=== PATIENT | male | born 1945 | race Caucasian/White ===

== ENCOUNTER → 2018-04-04 13:33 | Outpatient (CLI) | payer MEDICARE, OTHER, SELFPAY ==
[2018-04-04 15:20] LABS: PSA,Total- Diagnostic 4.46 ng/mL (0.0-4.0)
== END ==
PROVIDERS: Family Provider Internal Medicine; PCP Internal Medicine; Visit Provider Urology
DX: R97.20 Elevated prostate specific antigen [PSA] (principal)
CPT/HCPCS: 36415; 84153

== ENCOUNTER → 2019-04-19 10:24 | Outpatient (CLI) | payer MEDICARE, OTHER, SELFPAY ==
[2019-04-19 11:36] LABS: PSA,Total- Diagnostic 6.39 ng/mL (0.0-4.0)
== END ==
PROVIDERS: Family Provider Internal Medicine; PCP Internal Medicine; Referring Provider Urology; Visit Provider Urology
DX: R97.20 Elevated prostate specific antigen [PSA] (principal)
CPT/HCPCS: 36415; 84153

== ENCOUNTER → 2019-10-16 12:27 | Outpatient (CLI) | payer MEDICARE, OTHER, SELFPAY ==
[2019-10-16 14:10] LABS: PSA,Total- Diagnostic 7.83 ng/mL (0.0-4.0)
== END ==
PROVIDERS: PCP Internal Medicine; Referring Provider Urology; Visit Provider Urology
DX: R97.20 Elevated prostate specific antigen [PSA] (principal)
CPT/HCPCS: 36415; 84153

== ENCOUNTER → 2019-10-31 08:32 | Outpatient (CLI) | payer MEDICARE, OTHER, SELFPAY ==
--- NOTE | 2019-10-31 08:38 | NM_ITS ---
CLINICAL: 74-year-old male with reported history of carcinoma of the prostate with increasing serum PSA level and current complaint of low back discomfort. WHOLE BODY 99m Tc MDP RADIONUCLIDE BONE SCINTIGRAPHY COMPARISON: None available FINDINGS: Following the intravenous administration of 27.0 mCi of 99m Tc MDP, whole body bone images reveal: 1. Increased radiopharmaceutical concentration is identified in the acromioclavicular, glenohumeral and sternoclavicular compartments of both shoulders, lower cervical spine posteriorly on the left, several mid and lower thoracic vertebra, third-fifth lumbar vertebra, visualized right elbow, bilateral hands, the visualized portion of the left wrist. 2. The remaining skeletal structures are scintigraphically unremarkable with normal-appearing renal images and urinary bladder activity identified. Mild enhanced uptake is apparent in the femoral and tibial components of the bilateral knee, intertrochanteric components of the bilateral hip prostheses and distal femoral component of the right hip arthroplasty. NM/Bone Scan Whole Body IMPRESSION: 1. The increase in radiopharmaceutical concentration identified in the bilateral shoulders, cervical, thoracic and lumbar vertebra, bilateral hands, right elbow, the visualized left wrist is commensurate with degenerative arthritis. 2. There is no definitive typical scintigraphic evidence of diffuse axial skeletal metastatic disease on the current examination. Electronically Signed: Hill Youngblood DO at 23:20 EDT Tel , Service support ,
== END ==
PROVIDERS: PCP Internal Medicine; Referring Provider Urology; Visit Provider Urology
DX: C61 Malignant neoplasm of prostate (principal)
CPT/HCPCS: 78306

== ENCOUNTER → 2019-11-16 | Outpatient (CLI) | payer MEDICARE, OTHER, SELFPAY ==
--- NOTE | 2019-11-16 08:00 | PROSBIL_PTH ---
PATIENT: DEBI CASTELLANOS LOC: [facility] U#:[id number] AGE/SX: 74/M ROOM: RE11/16/[address]: Dr. Justo Travis MD : 1945 BED: DIS: 11/16/2019 SPEC #: [id number] RECD: 11/17/19 07:58 STATUS: DEMAR REQ #: [id number] SERGE: 11/16/19 08:[address]: Justo Travis DEPT: SURGICAL PATHOLOGY RECD BY: Viet Coppola ENTERED: 11/17/19 07:58 SP TYPE: PROST BX JOSESITO DR: Dr. Diamante Owens DO Tissues: A - PROSTATE RIGHT B - PROSTATE RIGHT C - PROSTATE RIGHT D - PROSTATE LEFT E - PROSTATE LEFT F - PROSTATE LEFT Procedures: PROSTATE BX HEADER OPERATION: Prostate biopsy PRE-OP DIAGNOSIS: Elevated PSA TISSUE SUBMITTED: A - Right apex, B - Right mid, C - Right base, D - Left apex, E - Left mid, F - Left base MICROSCOPIC DIAGNOSIS A. Right prostate, apex, core biopsy: Prostatic adenocarcinoma. Belle Rose grade: 3+4=7 Number of cores involved: 1/1 Proportion of tissue involved: 20% Perineural invasion: present, focal. Greatest tumor length: 0.4 cm Focal chronic inflammation. B. Right prostate, mid, core biopsy: Prostatic adenocarcinoma. Belle Rose grade: 3+4=7 Number of cores involved: 1/1 Proportion of tissue involved: 50% Perineural invasion: Not identified. Greatest tumor length: 0.5 cm Focal calcification. C. Right prostate, base, core biopsy: Prostatic adenocarcinoma. Belle Rose grade: 3+4=7 Number of cores involved: 1/1 Proportion of tissue involved: 60% Perineural invasion: Present, focal Greatest tumor length: 0.6 cm D. Left prostate, apex, core biopsy: Prostatic adenocarcinoma. Belle Rose grade: 3+4=7 Number of cores involved: 1/1 Proportion of tissue involved: 50% Perineural invasion: Not identified. Greatest tumor length: 1.2 cm, discontinuous E. Left prostate, mid, core biopsy: Prostatic adenocarcinoma. Belle Rose grade: 3+5=8 Number of cores involved: 1/1 Proportion of tissue involved: 80% Perineural invasion: Not identified. Greatest tumor length: 0.8 cm F. Left prostate, base, core biopsy: Prostatic adenocarcinoma. Belle Rose grade: 3+4=7 Number of cores involved: 1/1 Proportion of tissue involved: 50% Perineural invasion: Not identified. Greatest tumor length: 0.7 cm, discontinuous SJ:andriy 11/20/19 COMMENT Please make reference to previous specimen ([id number]) left prostate, core biopsy with diagnosis of prostatic adenocarcinoma, Belle Rose score 4+4-8 and the tumor involves 3 out of 6 cores and about 60% of the submitted specimen. Case has been reviewed in consultation with Dr. Levi who concurs with the above diagnosis. IDC:AM MICROSCOPIC DESCRIPTION Slides are reviewed. GROSS DESCRIPTION A - Received is one container designated prostate, right apex. The specimen consists of one elongated fragment of light duran-white soft tissue measuring 2 cm in length and 0.1 cm in diameter. The specimen is totally submitted in one cassette. B - Received is one container designated prostate, right mid. The specimen consists of one elongated fragment of light duran-white soft tissue measuring 1.5 cm in length and 0.1 cm in diameter. The specimen is totally submitted in one cassette. C - Received is one container designated prostate, right base. The specimen consists of one elongated fragment of light duran-white soft tissue measuring 1.5 cm in length and 0.1 cm in diameter. The specimen is totally submitted in one cassette. D - Received is one container designated prostate, left apex. The specimen consists of one elongated fragment of light duran-white soft tissue measuring 2 cm in length and 0.1 cm in diameter. The specimen is totally submitted in one cassette. E - Received is one container designated prostate, left mid. The specimen consists of one elongated fragment of light duran-white soft tissue measuring 1.5 cm in length and 0.1 cm in diameter. The specimen is totally submitted in one cassette. F - Received is one container designated prostate, left base. The specimen consists of one elongated fragment of light duran-white soft tissue measuring 1.2 cm in length and 0.1 cm in diameter. The specimen is totally submitted in one cassette. / AM:andriy 11/17/19 TC:0 CPT: G0146 ADDENDUM ADDENDUM ADDENDUM ADDENDUM ADDENDUM ADDENDUM ADDENDUM ADDENDUM ADDENDUM ADDENDUM ADDENDUM ADDENDUM ADDENDUM ADDENDUM ADDENDUM ADDENDUM ADDENDUM ADDENDUM ADDENDUM ADDENDUM ADDENDUM ADDENDUM ADDENDUM ADDENDUM ADDENDUM ADDENDUM ADDENDUM ADDENDUM ADDENDUM 06/07/2023 10:02 ADDENDUM 06/07/2023 10:02 ADDENDUM 06/07/2023 10:02 ADDENDUM 06/07/2023 10:02 ADDENDUM 06/07/2023 10:02 This addendum is added to incorporate an outside pathology consultation report. The case was examined at [facility] (#[id number]) and the following diagnosis was rendered. A. Right prostate, apex, core biopsy: Prostatic adenocarcinoma, Kassy score 4+3=7, involving 1 of fragmented 1 core and 25% of the tissue. Perineural invasion. B. Right prostate, mid, core biopsy: Prostatic adenocarcinoma, Kassy score 4+3=7, involving 1 of 1 core and 50% of the tissue. Perineural invasion. C. Right prostate, base, core biopsy: Prostatic adenocarcinoma, Belle Rose score 4+3=7, involving 1 of fragmented 1 core and 50% of the tissue. Perineural invasion. D. Left prostate, apex, core biopsy: Prostatic adenocarcinoma, Kasys score 4+3=7, involving 1 of fragmented 1 core and 90% of the tissue. Perineural invasion. E. Left prostate, mid, core biopsy: Prostatic adenocarcinoma, Belle Rose score 4+4=8, involving 1 of 1 core and 70% of the tissue. Perineural invasion. F. Left prostate, base, core biopsy: Prostatic adenocarcinoma, Belle Rose score 4+5=9, involving 1 of 1 core and 100% of the tissue. Perineural invasion. Please see complete above mentioned consultation report in EMR
== END | disposition home or self-care (01) ==
LOC: LABSPEC 16:22
PROVIDERS: PCP Internal Medicine; Referring Provider Urology; Visit Provider Urology
DX: R97.20 Elevated prostate specific antigen [PSA] (principal)
CPT/HCPCS: 88305; G0416

== ENCOUNTER → 2020-02-22 10:04 | Outpatient (CLI) | payer MEDICARE, OTHER, SELFPAY ==
[2020-02-22 12:07] LABS: PSA,Total- Diagnostic 1.27 ng/mL (0.0-4.0)
== END ==
PROVIDERS: PCP Internal Medicine; Referring Provider Urology; Visit Provider Urology
DX: C61 Malignant neoplasm of prostate (principal)
CPT/HCPCS: 36415; 84153

== ENCOUNTER → 2020-08-27 09:10 | Outpatient (CLI) | payer MEDICARE, OTHER, SELFPAY ==
[2020-08-27 10:46] LABS: PSA,Total- Diagnostic 7.75 ng/mL (0.0-4.0)
== END ==
PROVIDERS: PCP Internal Medicine; Referring Provider Urology; Visit Provider Urology
DX: C61 Malignant neoplasm of prostate (principal)
CPT/HCPCS: 36415; 84153

== ENCOUNTER → 2020-12-23 08:35 | Outpatient (CLI) | payer MEDICARE, OTHER, SELFPAY ==
[2020-12-23 11:25] LABS: PSA,Total- Diagnostic 8.16 ng/mL (0.0-4.0)
== END ==
PROVIDERS: PCP Internal Medicine; Referring Provider Urology; Visit Provider Urology
DX: C61 Malignant neoplasm of prostate (principal)
CPT/HCPCS: 36415; 84153

== ENCOUNTER 2021-03-21 06:05 | Day surgery (SDC) | payer MEDICARE, OTHER, SELFPAY ==
[2021-03-21] VITALS (7 sets, daily range): BP systolic 101–142; BP diastolic 55–73; PULSE 55–82; RESP 16; TEMP 36.1–36.6; O2SAT 92–95; BMI 46.5
[2021-03-21] MEDS: Lactated Ringers 1,000 ML 100 ML IV (06:25)
--- NOTE | 2021-03-21 06:58 | PCM.HP.STD ---
HPI - General HPI Narrative DEBI CASTELLANOS, is a 76 M who presents who presents for a screening colonoscopy.. He has no complaints. Occasional rectal bleeding. No abdominal pain no weight loss. Does not recall exact date of previous colonoscopy [facility] Medical History (Updated 03/21/21 @ 07:[address] Lit Liang MD) Alcohol use Arthritis Back pain Cancer CPAP (continuous positive airway pressure) dependence Easy bruising Gastric reflux High cholesterol History of stress test Hypertension Leg cramps Low iron Non-smoker Prostate disease Wears glasses Wears hearing aid Home Medications amlodipine [Norvasc] 10 mg PO DAILY 03/19/21 [History Last Taken 03/21/21] ascorbic acid (vitamin C) [Vitamin C] 500 mg PO DAILY 03/19/21 [History Last Taken Unknown] aspirin 325 mg PO DAILY 03/19/21 [History Last Taken 03/13/21] ciprofloxacin HCl [Cipro] 500 mg PO BID 03/19/21 [History Last Taken Unknown] ergocalciferol (vitamin D2) [Vitamin D2] 50,000 unit PO SYKES 03/19/21 [History Last Taken Unknown] losartan 50 mg PO DAILY 03/19/21 [History Last Taken 03/21/21] multivitamin 1 cap PO DAILY 03/19/21 [History Last Taken Unknown] pantoprazole 40 mg PO DAILY 03/19/21 [History Last Taken 03/21/21] prazosin 15 mg PO BID 03/19/21 [History Last Taken 03/21/21] vitamin E 400 unit PO DAILY 03/19/21 [History Last Taken Unknown] Allergy/AdvReac Type Severity Reaction Status Date / Time latex Allergy Rash Verified 03/21/21 06:27 Penicillins Allergy Itching Verified 03/21/21 06:27 Surgical History (Updated 03/19/21 @ 11:26 by Sahara Ruiz) History of colectomy Hx of cholecystectomy Hx of colonoscopy Hx of hammer toe correction Hx of total hip arthroplasty Hx of total knee arthroplasty Social History Smoking Status: Never smoker ROS Constitutional Constitutional: Reports systems reviewed and no addt'l complaints, except as documented Cardiovascular Cardiovascular: Denies chest pain Respiratory/Chest Respiratory/Chest: Denies shortness of breath at rest Gastrointestinal Gastrointestinal: Denies abdominal pain, change in bowel habits, hematochezia or melena Vital Signs Vital Signs Vital Signs: 03/21/21 06:47 Temperature 97.9 F Temperature Source Temporal Pulse Rate 82 Respiratory Rate 16 Respiratory Pattern Normal Blood Pressure 142/71 H Blood Pressure Mean 94 Blood Pressure Source Monitor Blood Pressure Position Semi-Fowlers Blood Pressure Location Right Arm Pulse Ox 95 Oxygen Delivery Method Room Air Weight Weight: 315 lb 0.649 oz Body Mass Index (BMI) 46.5 Physical Exam Const alert, oriented x3 and no apparent distress General Appearance: cooperative and comfortable Eyes General Eye: normal appearance of both eyes Neck General: normal visual inspection Chest inspection of chest normal Resp Effort and Inspection: able to speak in complete sentences and symmetric chest movement Auscultation: clear to auscultation bilaterally Cardio regular rate and regular rhythm GI soft to palpation, non-tender and non-distended Extremity no calf tenderness Neuro oriented x3 Psych thought process normal Assessment & Plan Assessment/Plan (1) Screening for intestinal cancer: PLAN: Plan to proceed with a screening colonoscopy with possible biopsy or polypectomy as indicated. The patient presents via open access. He has had an opportunity ask no questions answered. We will proceed as noted. Lit Liang M.D., F.A.C.S.
--- NOTE | 2021-03-21 07:30 | COLBX_PTH ---
PATIENT: DEBI CASTELLANOS LOC: EN U#:[id number] AGE/SX: 76/M ROOM: RE03/21/[address]: Dr. Lit Liang MD : 1945 BED: DIS: 03/21/2021 SPEC #: [id number] RECD: 03/21/21 10:37 STATUS: DEMAR REVielka #: [id number] SERGE: 03/21/21 07:[address]: Lit Liang DEPT: SURGICAL PATHOLOGY RECD BY: Kristan Espinosa ENTERED: 03/21/21 13:41 SP TYPE: COLON BX OTHR DR: Dr. Diamante Owens, DO Tissues: Rectum, NOS Procedures: Surgery Specimen Level IV HEADER OPERATION: Colonoscopy ? open access (MAC) PRE-OP DIAGNOSIS: Screening for intestinal cancer TISSUE SUBMITTED: Rectal polyp biopsy MICROSCOPIC DIAGNOSIS Rectal polyp, biopsy: Hyperplastic polyp. SJ:andriy 03/24/2021 COMMENT Please make reference to previous specimen ([id number]) right colon, colectomy with diagnosis of ?invasive moderately differentiated adenocarcinoma.? MICROSCOPIC DESCRIPTION Slides are reviewed. GROSS DESCRIPTION Received in fixative is one container labeled with the patient's name and designated rectal polyp biopsy. The specimen consists of one irregular fragment of light duran soft tissue that measures 0.2 x 0.2 x 0.1 cm. The specimen is totally submitted in one cassette. / SJ:andriy 03/21/21 TC:1 CPT: 13910
--- NOTE | 2021-03-21 07:59 | OP.COLON_ITS ---
Patient Name: Lazaro Haywood Procedure Date: 03/21/2021 7:35 AM Date of : 1945 Age: 76 Procedure: Colonoscopy Indications: High risk colon cancer surveillance: Personal history of colon cancer Providers: Lit Liang MD Medicines: See the Anesthesia note for documentation of the administered medications Patient Profile: Last Colonoscopy: 5 years ago. Complications: No immediate complications. Procedure: Pre-Anesthesia Assessment: - Prior to the procedure, a History and Physical was performed, and patient medications and allergies were reviewed. The patient's tolerance of previous anesthesia was also reviewed. The risks and benefits of the procedure and the sedation options and risks were discussed with the patient. All questions were answered, and informed consent was obtained. Prior Anticoagulants: The patient has taken no previous anticoagulant or antiplatelet agents. ASA Grade Assessment: II - A patient with mild systemic disease. After reviewing the risks and benefits, the patient was deemed in satisfactory condition to undergo the procedure. After I obtained informed consent, the scope was passed under direct vision. Throughout the procedure, the patient's blood pressure, pulse, and oxygen saturations were monitored continuously. The adult colonoscope was introduced through the anus and advanced to the ileocolonic anastomosis. The colonoscopy was performed without difficulty. The patient tolerated the procedure well. The quality of the bowel preparation was good. Ileocolonic anastomosis were photographed. Scope In: 7:41:55 AM Scope Withdrawal Time 0 hours 9 minutes 18 seconds Scope Out: 7:54:50 AM Total Procedure Duration Time 0 hours 12 minutes 54 seconds Findings: The perianal and digital rectal examinations were normal. A 4 mm polyp was found in the rectum. The polyp was sessile. The polyp was removed with a cold biopsy forceps. Resection and retrieval were complete. There was evidence of a prior functional end-to-end ileo-colonic anastomosis in the proximal transverse colon. This was patent and was characterized by healthy appearing mucosa. A few diverticula were found in the sigmoid colon. Impression: - One 4 mm polyp in the rectum, removed with a cold biopsy forceps. Resected and retrieved. - Patent functional end-to-end ileo-colonic anastomosis, characterized by healthy appearing mucosa. - Diverticulosis in the sigmoid colon. Recommendation: - Discharge patient to home. - Resume previous diet. - Continue present medications. - Repeat colonoscopy in 5 years for surveillance. - Telephone my office for pathology results in 1 week. Procedure Code(s): --- Professional --- 41180, Colonoscopy, flexible; with biopsy, single or multiple Diagnosis Code(s): --- Professional --- Z85.038, Personal history of other malignant neoplasm of large intestine K62.1, Rectal polyp Z98.0, Intestinal bypass and anastomosis status K57.30, Diverticulosis of large intestine without perforation or abscess without bleeding CPT copyright 2017 [employer]. All rights reserved. The codes documented in this report are preliminary and upon oil dispatcher review may be revised to meet current compliance requirements. Lit Liang MD 03/21/2021 7:59:03 AM This report has been signed electronically. Number of Addenda: 0 Note Initiated On: 03/21/2021 7:35 AM
--- NOTE | 2021-03-21 08:00 | OP.CCLET_ITS ---
03/21/2021 Diamante Owens [address] [place] [address] Re : Colonoscopy procedure for Lazaro Haywood Dear Dr. Owens This procedure was performed on Sunday, March 21, 2021. My impressions and recommendations are as follows: Impressions : - One 4 mm polyp in the rectum, removed with a cold biopsy forceps. Resected and retrieved. - Patent functional end-to-end ileo-colonic anastomosis, characterized by healthy appearing mucosa. - Diverticulosis in the sigmoid colon. Recommendations : - Discharge patient to home. - Resume previous diet. - Continue present medications. - Repeat colonoscopy in 5 years for surveillance. - Telephone my office for pathology results in 1 week. My findings are described in the full procedure note, which is enclosed. If I can be of further assistance, please feel free to contact me at Doctor phone number(s): Work: . Sincerely, Lit Liang MD 03/21/2021 7:59:03 AM This report has been signed electronically.
== END 2021-03-21 08:57 ==
LOC: EN 06:06 → AC 06:07
PROVIDERS: PCP Internal Medicine; Referring Provider Internal Medicine; Visit Provider Surgery
PROC: 0DJD8ZZ Inspection of Lower Intestinal Tract, Via Natural or Artificial Opening Endoscopic (ICD-10-PCS; CPT 45378; principal; 2021-03-21 07:25)
DX: Z12.11 Encounter for screening for malignant neoplasm of colon (principal); K62.1 Rectal polyp; K57.30 Diverticulosis of large intestine without perforation or abscess without bleeding; I10 Essential (primary) hypertension; E78.00 Pure hypercholesterolemia, unspecified; M19.90 Unspecified osteoarthritis, unspecified site; K21.9 Gastro-esophageal reflux disease without esophagitis; Z79.82 Long term (current) use of aspirin; Z79.899 Other long term (current) drug therapy; Z98.0 Intestinal bypass and anastomosis status; Z85.038 Personal history of other malignant neoplasm of large intestine; Z90.49 Acquired absence of other specified parts of digestive tract
CPT/HCPCS: 45380; 88305; J7120; J2405

== ENCOUNTER → 2021-06-27 10:24 | Outpatient (CLI) | payer MEDICARE, OTHER, SELFPAY | PROVIDERS: PCP Internal Medicine; Referring Provider Urology; Visit Provider Urology | DX: C61 Malignant neoplasm of prostate (principal) | CPT/HCPCS: 36415; 84153 ==

== ENCOUNTER → 2021-12-26 | Outpatient (CLI) | payer MEDICARE, OTHER, SELFPAY ==
[2021-12-26 09:52] LABS: PSA,Total- Diagnostic 8.53 ng/mL (0.0-4.0)
== END | disposition home or self-care (01) ==
LOC: LAB 09:09
PROVIDERS: PCP Internal Medicine; Referring Provider Urology; Visit Provider Urology
DX: C61 Malignant neoplasm of prostate (principal)
CPT/HCPCS: 36415; 84153

== ENCOUNTER → 2022-05-25 | Outpatient (CLI) | payer MEDICARE, OTHER, SELFPAY | END | disposition home or self-care (01) | LOC: SL 20:13 | PROVIDERS: PCP Internal Medicine; Referring Provider Internal Medicine; Visit Provider Internal Medicine | DX: G47.33 Obstructive sleep apnea (adult) (pediatric) (principal) | CPT/HCPCS: 95811 ==

== ENCOUNTER → 2022-06-18 | Outpatient (CLI) | payer MEDICARE, OTHER, SELFPAY ==
[2022-06-18 12:05] LABS: PSA,Total- Diagnostic 9.65 ng/mL (0.0-4.0)
== END | disposition home or self-care (01) ==
LOC: LAB 11:02
PROVIDERS: PCP Internal Medicine; Visit Provider Registered Nurse
DX: C61 Malignant neoplasm of prostate (principal)
CPT/HCPCS: 36415; 84153

== ENCOUNTER → 2022-12-14 | Outpatient (CLI) | payer MEDICARE, OTHER, SELFPAY ==
[2022-12-14 08:13] LABS: Mucous, Urine 0 SEEN /hpf (<or=2+); Red Blood Cells-Urine 0 SEEN /hpf (0-5); White Blood Cells 0 SEEN /hpf (0-5)
[2022-12-14 09:07] LABS: Color, Urine Yellow (Yellow); Glucose, Dipstick Normal (Normal); Ketone-Dipstick Negative (Negative); Leukocyte Esterase-Dipstick Negative /ul (Negative); Nitrite-Dipstick Negative (Negative); Occult Blood-Urine Negative /ul (Negative); Protein-Dipstick 15 mg/dl (Negative); Urine Bilirubin Dipstick Negative (Negative); Urine Clarity Sl. Cloudy (Clear); Urine Urobilinogen Normal (Normal)
[2022-12-14 09:09] LABS: Absolute Lymphocyte Count 1.22 X10^3/uL (0.83-4.51); Absolute Neutrophil Count 2.6 X10^3/uL (2.0-7.7); Basophil# 0.06 X10^3/uL; Basophil% 1.4 % (0-1); Eosinophil# 0.13 X10^3/uL; Hematocrit 42.1 % (40-54); Hemoglobin 13.9 g/dL (13.0-16.5); Lymphocyte # 1.22 X10^3/ul (0.83-4.51); Mean Corpuscular Hgb 31.4 pg (27.0-32.0); Mean Platelet Vol. 11.1 fl (6.2-12.0); Monocyte# 0.38 X10^3/uL; Monocyte% 8.7 % (0-10); NRBC Flagged by Analyzer 0 % (0-5); Neutrophil # 2.56 X10^3/uL (2.7-7.7); Neutrophil % 58.7 % (47-70); Platelet Count 224 K/mm3 (150-450); RBC Distribution Width CV 12.7 % (11.6-14.6); RBC Distribution Width SD 44.9 fl (35.1-43.9); Red Blood Count 4.43 M/mm3 (4.6-6.2); White Blood Count 4.4 K/mm3 (4.4-11.0)
[2022-12-14 09:13] LABS: Bacteria 1+ /hpf (None Seen); Squamous Epithelial Cells - UA 0-5 SEEN /hpf (0-5)
[2022-12-14 09:28] LABS: Microalbumin,Random Urine 8.5 mg/L (NO RANGE EST.); Microalbumin:Creatinine Ratio 4.1 mg/g CRE (<30 mg/g CRE)
[2022-12-14 09:40] LABS: AST(SGOT) 16 U/L (15-37); Alanine Aminotransfer ALT/SGPT 30 U/L (16-61); Albumin, Serum 3.5 g/dL (3.2-5.0); Alkaline Phosphatase 54 U/L (45-117); Anion Gap 3 (5-15); BUN 19 mg/dL (7-18); BUN/Creat Ratio 22.2 RATIO (10-20); Calcium,Total 8.6 mg/dL (8.5-10.1); Chloride 106 mmol/L (98-107); Cholesterol 180 mg/dL (200); Creatinine, Serum 0.86 mg/dL (0.70-1.30); EST Glomerular Filtration Rate 92 mL/min (>60); Est Glom Filt Rate - Afr Amer 112 mL/min (>60); Globulin 3.4 g/dL (2.2-4.2); Glucose 105 mg/dL (74-106); High Density Lipoprotein 49 mg/dL; Potassium 4.1 mmol/L (3.5-5.1); Protein, Total 6.9 g/dL (6.4-8.2); Sodium Level 136 mmol/L (136-145); Triglycerides 88 mg/dL; Very Low Density Lipoprotein 18 mg/dL (5-40)
== END | disposition home or self-care (01) ==
LOC: LAB 08:08
PROVIDERS: PCP Internal Medicine; Referring Provider Urology; Visit Provider Urology
DX: C61 Malignant neoplasm of prostate (principal); I10 Essential (primary) hypertension; E55.9 Vitamin D deficiency, unspecified; R09.81 Nasal congestion
CPT/HCPCS: 36415; 80053; 80061; 81001; 82043; 82306; 82570; 84153; 85025

== ENCOUNTER → 2023-03-02 | Outpatient (CLI) | payer MEDICARE, OTHER, SELFPAY ==
--- NOTE | 2023-03-02 11:30 | PET_ITS ---
EXAMINATION: 18 F Pylarify PET-CT HISTORY: A 78-year-old male with history of primary prostate carcinoma presenting for restaging examination. COMPARISON EXAMINATION: None available INDEX LESION SIZE PROMISE SCORE SUV INTERPRETATION Prostate bed 30.5-mm 3 42.33 Fulfills quantitative criteria for viable neoplasm NON-INDEX LESION SIZE PROMISE SCORE SUV INTERPRETATION Right thoracic perihilum 1 6.07 Quantitative criteria for viable neoplasm are not fulfilled TECHNIQUE: Following the intravenous administration of 9.75 mCi of 18 F Pylarify via the right antecubital fossa, image acquisitions of the head, neck, chest, abdomen and pelvis to the level of the mid thigh at 73 minutes post-tracer distribution reveal: The examination was interpreted using the EANM (Lee Ann et al., Journal of Nuclear Medicine Molecular Imaging 44:1622, 2017) and PROMISE (Ran et al., Journal of Nuclear Medicine 59:469, 2018) interpretive criteria. HEIGHT: 69 inches. WEIGHT: 320 lbs. PSMA expression score PROMISE criteria: High (3): SUV ? parotid-salivary gland, intermediate (2): SUV ? liver, low (1): > blood pool, < liver, (0): < blood pool. SUV reference values: Parotid glands 43.99. Normal liver parenchyma 14.2. FINDINGS: Head/Neck: Symmetric radiopharmaceutical concentration is defined in the bilateral parotid and submandibular glands. There is physiologic uptake within the nasal cavity. There is no evidence of abnormal increased tracer concentration within the cranial vault. CHEST: Mild increased radiopharmaceutical concentration is manifest in the right thoracic perihilum with a calculated maximal standard uptake value of 6.07. The PROMISE score is 1. Pertinent chest CT findings are as follows. Bilateral axillary soft tissue densities demonstrate no evidence of increased tracer uptake. There is atherosclerotic calcification defined in the thoracic aorta without evidence of dilatation-aneurysm formation. Coronary arterial calcification is observed. A non-calcified ovoid parenchymal density noted in the left lower lung zone, left lower lobe is non-tracer avid. A linear density defined in the right lower anteromedial lung field reveals no evidence of increased radiopharmaceutical concentration. Abdomen/Pelvis: Facilitated radiopharmaceutical concentration is noted in the lower pelvis caudal to the urinary bladder in the region of the prostate bed. The calculated maximal standard uptake value is 42.33. The PROMISE score is 3. The maximal axial diameter of the metabolic, morphologic abnormality is 30.5-mm (transverse). Physiologic radiopharmaceutical concentration is otherwise noted in the hepatic and splenic parenchyma, visualized intestinal tract, right and left kidneys, urinary bladder. Review of CT of the abdomen and pelvis reveals the following. A fat containing inguinal hernia is noted in the anterior midline pelvic wall. There is atherosclerotic calcification defined in the abdominal aorta without evidence of dilatation-aneurysm formation. Abdominal and pelvic arterial calcification are encountered. Beam hardening artifact attributed to left and right hip arthroplasties compromises evaluation of the lower pelvic CT interpretation. A fat containing right and left inguinal hernias are noted. Bilateral inguinal soft tissue densities reveal no evidence of increased tracer uptake. Cyst formation is defined in the right lobe of the hepatic parenchyma. SKELETAL: Degenerative changes are noted in the cervical, thoracic and lumbar spine without evidence of increased radiopharmaceutical concentration. PET/PET/CT Tumor Base -Thigh Subs IMPRESSION: 1. ABNORMAL EXAMINATION INDICATIVE OF MALIGNANT VIABLE NEOPLASM. 2. Increased radiopharmaceutical concentration defined in the prostate bed fulfills quantitative criteria for malignant transformation. (Eiber et al., Journal of Nuclear Medicine 59:469, 2018). 3. Enhanced tracer uptake visualized in the right thoracic perihilum does not fulfill quantitative criteria for malignant transformation. Electronic Signature Hill Youngblood, DO Accurate Quantification of SUVs and standardized PROMISE scores for this report are calculated using the exclusive [employer], ([place].S. Patent No. [id number] [phone] [place] patent [phone] ). Standardization and correction of the FDG SUV metric exclusively available with [employer] intellectual property, allow for vendor non-specific objective quantitative sequential FDG PET-CT comparison and otherwise unobtainable optimization of the sensitivity and specificity of the examination. Electronically Signed: Hill Youngblood, at 21:38 EDT ,
== END | disposition home or self-care (01) ==
LOC: ONC 09:21
PROVIDERS: PCP Internal Medicine; Referring Provider Urology; Visit Provider Urology
DX: C61 Malignant neoplasm of prostate (principal); R97.21 Rising PSA following treatment for malignant neoplasm of prostate
CPT/HCPCS: 78815; A9595

== ENCOUNTER → 2023-03-29 | Outpatient (CLI) | payer MEDICARE, OTHER, SELFPAY | END | disposition home or self-care (01) | LOC: LAB 09:41 | PROVIDERS: PCP Internal Medicine; Visit Provider Urology | DX: R97.21 Rising PSA following treatment for malignant neoplasm of prostate (principal) | CPT/HCPCS: 36415; 84153 ==

== ENCOUNTER → 2023-07-02 | Outpatient (CLI) | payer MEDICARE, OTHER, SELFPAY | END | disposition home or self-care (01) | PROVIDERS: PCP Internal Medicine; Visit Provider Nurse Practitioner | DX: C61 Malignant neoplasm of prostate (principal) | CPT/HCPCS: 36415; 84153; G0103 ==

== ENCOUNTER → 2023-09-28 | Outpatient (CLI) | payer MEDICARE, OTHER, SELFPAY ==
[2023-09-28 09:23] LABS: Bacteria 0 SEEN /hpf (None Seen); Mucous, Urine 0 SEEN /hpf (<or=2+); Red Blood Cells-Urine 0 SEEN /hpf (0-5); Squamous Epithelial Cells - UA 0 SEEN /hpf (0-5); White Blood Cells 0 SEEN /hpf (0-5)
[2023-09-28 10:40] LABS: Color, Urine Yellow (Yellow); Glucose, Dipstick Normal (Normal); Ketone-Dipstick Negative (Negative); Leukocyte Esterase-Dipstick Negative /ul (Negative); Nitrite-Dipstick Negative (Negative); Occult Blood-Urine 10 /ul (Negative); Protein-Dipstick Negative (Negative); Specific Gravity, Urine 1.015 (1.002-1.030); Urine Bilirubin Dipstick Negative (Negative); Urine Clarity Clear (Clear); Urine Urobilinogen Normal (Normal)
[2023-09-28 10:45] LABS: Absolute Neutrophil Count 2.8 X10^3/uL (2.0-7.7); Basophil# 0.07 X10^3/uL; Basophil% 1.6 % (0-1); Eosinophil# 0.12 X10^3/uL; Eosinophils% 2.7 % (0-5); Lymphocyte % 24.6 % (19-41); Mean Corp Hgb Conc 34.1 g/dL (32-36); Mean Corpuscular Hgb 31.6 pg (27.0-32.0); Mean Corpuscular Volume 92.6 fL (80-94); Mean Platelet Vol. 11.2 fl (6.2-12.0); Monocyte# 0.36 X10^3/uL; Monocyte% 8.1 % (0-10); NRBC Flagged by Analyzer 0 % (0-5); Neutrophil % 62.6 % (47-70); Platelet Count 217 K/mm3 (150-450); RBC Distribution Width CV 12.4 % (11.6-14.6); RBC Distribution Width SD 42.4 fl (35.1-43.9); Red Blood Count 4.43 M/mm3 (4.6-6.2); White Blood Count 4.5 K/mm3 (4.4-11.0)
[2023-09-28 11:12] LABS: Microalbumin,Random Urine 7.5 mg/L (NO RANGE EST.); Microalbumin:Creatinine Ratio 4.8 mg/g CRE (<30 mg/g CRE)
[2023-09-28 11:19] LABS: Vitamin D,25 Hydroxy 99.8 ng/mL
[2023-09-28 11:23] LABS: ALB/GLOB Ratio 1.1 RATIO (0.9-2.4); AST(SGOT) 18 U/L (15-37); Alanine Aminotransfer ALT/SGPT 31 U/L (16-61); Albumin, Serum 3.6 g/dL (3.2-5.0); Alkaline Phosphatase 62 U/L (45-117); Anion Gap 2 (5-15); BUN 16 mg/dL (7-18); BUN/Creat Ratio 18.5 RATIO (10-20); Calcium,Total 8.9 mg/dL (8.5-10.1); Chloride 107 mmol/L (98-107); Cholesterol 179 mg/dL (200); Creatinine, Serum 0.86 mg/dL (0.70-1.30); EST Glomerular Filtration Rate 91 mL/min (>60); Est Glom Filt Rate - Afr Amer 110 mL/min (>60); Globulin 3.4 g/dL (2.2-4.2); Glucose 105 mg/dL (74-106); High Density Lipoprotein 53 mg/dL; Potassium 4.1 mmol/L (3.5-5.1); Sodium Level 137 mmol/L (136-145); Triglycerides 84 mg/dL; Very Low Density Lipoprotein 17 mg/dL (5-40)
== END | disposition home or self-care (01) ==
LOC: LAB 09:19
PROVIDERS: PCP Internal Medicine; Referring Provider Urology; Visit Provider Urology
DX: C61 Malignant neoplasm of prostate (principal); I10 Essential (primary) hypertension; E55.9 Vitamin D deficiency, unspecified
CPT/HCPCS: 36415; 80053; 80061; 81001; 82043; 82306; 82570; 84153; 85025

== ENCOUNTER → 2024-01-04 | Outpatient (CLI) | payer MEDICARE, OTHER, SELFPAY ==
[2024-01-04 11:43] LABS: PSA,Total- Diagnostic 2.41 ng/mL (0.0-4.0)
== END | disposition home or self-care (01) ==
LOC: LAB 10:16
PROVIDERS: PCP Internal Medicine; Referring Provider Urology; Visit Provider Urology
DX: C61 Malignant neoplasm of prostate (principal)
CPT/HCPCS: 36415; 84153

== ENCOUNTER → 2024-04-11 | Outpatient (CLI) | payer MEDICARE, OTHER, SELFPAY ==
[2024-04-11 10:17] LABS: Absolute Lymphocyte Count 0.98 X10^3/uL (0.83-4.51); Absolute Neutrophil Count 2.9 X10^3/uL (2.0-7.7); Basophil# 0.05 X10^3/uL; Basophil% 1.1 % (0-1); Eosinophil# 0.12 X10^3/uL; Eosinophils% 2.7 % (0-5); Hemoglobin 13.4 g/dL (13.0-16.5); Lymphocyte # 0.98 X10^3/ul (0.83-4.51); Mean Corp Hgb Conc 33.5 g/dL (32-36); Mean Corpuscular Hgb 30.9 pg (27.0-32.0); Mean Corpuscular Volume 92.4 fL (80-94); Mean Platelet Vol. 10.5 fl (6.2-12.0); Monocyte# 0.36 X10^3/uL; Monocyte% 8.1 % (0-10); NRBC Flagged by Analyzer 0 % (0-5); Neutrophil # 2.94 X10^3/uL (2.7-7.7); Neutrophil % 65.9 % (47-70); Platelet Count 215 K/mm3 (150-450); RBC Distribution Width CV 12.7 % (11.6-14.6); RBC Distribution Width SD 43.2 fl (35.1-43.9); Red Blood Count 4.33 M/mm3 (4.6-6.2); White Blood Count 4.5 K/mm3 (4.4-11.0)
[2024-04-11 10:18] LABS: Color, Urine Yellow (Yellow); Glucose, Dipstick Normal (Normal); Ketone-Dipstick Negative (Negative); Leukocyte Esterase-Dipstick Negative /ul (Negative); Nitrite-Dipstick Negative (Negative); Occult Blood-Urine Negative /ul (Negative); Protein-Dipstick Negative (Negative); Specific Gravity, Urine 1.015 (1.002-1.030); Urine Bilirubin Dipstick Negative (Negative); Urine Clarity Clear (Clear); Urine Urobilinogen Normal (Normal); Urine pH 6.5 (5.0 - 8.0)
[2024-04-11 10:50] LABS: Vitamin D,25 Hydroxy 96.6 ng/mL
[2024-04-11 11:08] LABS: AST(SGOT) 20 U/L (15-37); Alanine Aminotransfer ALT/SGPT 30 U/L (16-61); Albumin, Serum 3.4 g/dL (3.2-5.0); Alkaline Phosphatase 67 U/L (45-117); Anion Gap 4 (5-15); BUN 16 mg/dL (7-18); Calcium,Total 8.9 mg/dL (8.5-10.1); Chloride 109 mmol/L (98-107); Cholesterol 185 mg/dL (200); Creatinine, Serum 0.94 mg/dL (0.70-1.30); EST Glomerular Filtration Rate 83 mL/min (>60); Est Glom Filt Rate - Afr Amer 100 mL/min (>60); Globulin 3.5 g/dL (2.2-4.2); Glucose 121 mg/dL (74-106); High Density Lipoprotein 52 mg/dL; PSA,Total- Diagnostic 1.48 ng/mL (0.0-4.0); Potassium 4.3 mmol/L (3.5-5.1); Protein, Total 6.9 g/dL (6.4-8.2); Sodium Level 140 mmol/L (136-145); Triglycerides 119 mg/dL; Very Low Density Lipoprotein 24 mg/dL (5-40)
[2024-04-11 11:29] LABS: Microalbumin:Creatinine Ratio 5.8 mg/g CRE (<30 mg/g CRE)
== END | disposition home or self-care (01) ==
LOC: LAB 09:44
PROVIDERS: PCP Internal Medicine; Referring Provider Urology; Visit Provider Urology
DX: C61 Malignant neoplasm of prostate (principal); R73.9 Hyperglycemia, unspecified; E55.9 Vitamin D deficiency, unspecified; Z79.899 Other long term (current) drug therapy
CPT/HCPCS: 36415; 80053; 80061; 81002; 82043; 82306; 82570; 84153; 85025

== ENCOUNTER → 2024-07-24 | Outpatient (CLI) | payer MEDICARE, OTHER, SELFPAY ==
[2024-07-24 12:44] LABS: PSA,Total- Diagnostic 1.02 ng/mL (0.0-4.0)
== END | disposition home or self-care (01) ==
LOC: LAB 11:24
PROVIDERS: PCP Internal Medicine; Referring Provider Urology; Visit Provider Urology
DX: C61 Malignant neoplasm of prostate (principal)
CPT/HCPCS: 36415; 84153

== ENCOUNTER → 2024-10-23 | Outpatient (CLI) | payer MEDICARE, OTHER, SELFPAY ==
[2024-10-23 11:31] LABS: PSA,Total- Diagnostic 0.84 ng/mL (0.00-4.00)
== END | disposition home or self-care (01) ==
LOC: PAVLAB 10:24
PROVIDERS: PCP Internal Medicine; Referring Provider Student in an Organized Health Care Education/Training Program; Visit Provider Student in an Organized Health Care Education/Training Program
DX: C61 Malignant neoplasm of prostate (principal)
CPT/HCPCS: 36415; 84153

== ENCOUNTER → 2025-01-18 | Outpatient (CLI) | payer MEDICARE, OTHER, SELFPAY | END | disposition home or self-care (01) | LOC: PSN 08:46 | PROVIDERS: PCP Internal Medicine; Referring Provider Internal Medicine; Visit Provider Internal Medicine | DX: I49.9 Cardiac arrhythmia, unspecified (principal) | CPT/HCPCS: 93225; 93226 ==

== ENCOUNTER → 2025-01-24 | Outpatient (CLI) | payer MEDICARE, OTHER, SELFPAY ==
[2025-01-24 10:46] LABS: PSA,Total- Diagnostic 0.75 ng/mL (0.00-4.00)
== END | disposition home or self-care (01) ==
LOC: LAB 09:45
PROVIDERS: PCP Internal Medicine; Referring Provider Urology; Visit Provider Urology
DX: C61 Malignant neoplasm of prostate (principal)
CPT/HCPCS: 36415; 84153

== ENCOUNTER → 2025-02-07 | Outpatient (CLI) | payer MEDICARE, OTHER, SELFPAY ==
--- NOTE | 2025-02-07 06:05 | ECHOCS_ITS ---
Reason For Study Reason For Study: DYSPNEA Procedure This was a 2D Doppler, Color Flow transthoracic echocardiogram. The study was technically difficult. Exam performed in department. Left Ventricle Normal LV size. The left ventricular ejection fraction is 55 %. Stage 1 diastolic dysfunction. No regional wall motion abnormalities noted. Right Ventricle Mildly dilated right ventricle. Normal systolic function. Atria Normal left atrium. Normal right atrium. Bubble contrast study is negative for PFO/ASD. Mitral Valve Normal mitral valve. Tricuspid Valve Normal tricuspid valve. Mild tricuspid valve insufficiency. Pulmonary artery systolic pressure is 18 mmHg. Aortic Valve Trisinus/trileaflet aortic valve. Pulmonic Valve Normal pulmonic valve. Great Vessels The sinus of valsalva is mildly dilated. The pulmonary artery is normal size. Inferior vena cava collapse with respiration. Pericardium/Pleural No pericardial effusion. Medication 22 gauge I.V. with prn adaptor inserted into right arm. Diluted definity 1.5ml given slow IV push to enhance endocardial definition. Performed a rapid injection of agitated mix of 9 cc saline and 1cc air to assess for atrial septal defect. MMode/2D Measurements & Calculations LVIDd: 5.9 cm IVSd: 1.2 cm LVOT diam: 2.2 cm LVIDs: 3.6 cm LVPWd: 1.1 cm RVDd: 4.7 cm FS: 38.9 % LVOT area: 3.8 cm2 asc Aorta Diam: 4.0 cm LAV(MOD-bp): 71.0 ml LVAd ap4: 48.7 cm2 LAV(MOD-bp) Indexed: 27.7 ml/m2 LVLd ap4: 9.2 cm LAV(MOD-sp2): 61.5 ml EDV(MOD-sp4): 207.5 ml LAV(MOD-sp4): 74.2 ml EDV(sp4-el): 219.3 ml LVAs ap4: 30.1 cm2 LVLs ap4: 7.5 cm ESV(MOD-sp4): 97.5 ml ESV(sp4-el): 102.7 ml EF(MOD-sp4): 53.0 % EF(sp4-el): 53.2 % LVAd ap2: 39.4 cm2 SV(MOD-sp4): 109.9 ml SV(MOD-sp2): 82.8 ml LVLd ap2: 8.6 cm SI(MOD-sp4): 43.0 ml/m2 SI(MOD-sp2): 32.4 ml/m2 EDV(MOD-sp2): 146.7 ml EDV(sp2-el): 153.3 ml LVAs ap2: 23.8 cm2 LVLs ap2: 7.2 cm ESV(MOD-sp2): 63.9 ml ESV(sp2-el): 66.3 ml EF(MOD-sp2): 56.5 % SV(sp4-el): 116.6 ml Ao sinus diam: 3.[address] Junction: 3.1 cm LA dimension(2D): 4.7 cm LA A4 area: 22.4 cm2 RA A4 area: 11.3 cm2 TAPSE: 2.5 cm Time Measurements MV dec time: 0.19 sec Doppler Measurements & Calculations MV E max meir: 61.5 cm/sec Lat Peak E' Meir: 9.4 cm/sec Med Peak E' Meir: 6.7 cm/sec MV A max meir: 84.1 cm/sec E/E' lat: 6.5 E/E' med: 9.2 MV E/A: 0.73 MV dec slope: 320.7 cm/sec2 Ao V2 max: 155.4 cm/sec LV V1 max: 97.2 cm/sec Ao max P.7 mmHg LV V1 max P.8 mmHg Ao V2 mean: 110.9 cm/sec LV V1 mean P.1 mmHg Ao mean P.3 mmHg LV V1 mean: 66.7 cm/sec Ao V2 VTI: 34.8 cm LV V1 VTI: 25.5 cm AV (velocity ratio): 0.73 SCOOTER(I,D): 2.8 cm2 SCOOTER(V,D): 2.4 cm2 SV(LVOT): 97.3 ml PA V2 max: 102.5 cm/sec TR max meir: 193.3 cm/sec TR max P.9 mmHg ECHO/Echo Complete W/ Contrast Interpretation Summary Bubble contrast study is negative for PFO/ASD. Normal LV size. The left ventricular ejection fraction is 55 %. Mildly dilated right ventricle. Stage 1 diastolic dysfunction. Ordering Physician: Diamante Owens Referring Physician: Diamante Owens Performed By: Lily Posada RDCS
--- NOTE | 2025-02-07 12:48 | STRESSREP ---
Stress Test Report Pharmacologic myocardial perfusion stress test. 79-year-old male with a history of dyspnea on exertion Resting EKG demonstrates sinus rhythm with a rate of 71 bpm frequent premature ventricular complexes with a rate of 71 bpm. Resting blood pressure is 132/70 mmHg. 0.4 mg of regadenoson was infused per usual protocol followed by rapid intravenous saline flush injection. Continuous EKG monitoring was performed. The maximum heart rate was 96 bpm which was 67% of max impacted heart rate the maximum workload was 1 metabolic equivalent. At rest there were no ST or T wave changes noted to suggest ischemia and at peak infusion nonspecific ST changes were noted which did not meet the criteria for ischemia. No clinical angina is noted. The final blood pressure was 124/78 mmHg. Myocardial perfusion protocol. 14.8 mCi of technetium 99m sestamibi was injected at rest. 0.4 mg of regadenoson was infused per usual protocol. At peak infusion 45.3 mCi of technetium 99m sestamibi was injected stress images were obtained stress and rest images were reconstructed and compared in the short axis vertical long and horizontal long axis. Gated images were not obtained . Perfusion SPECT analysis: Review of the stress images demonstrate normal uptake of tracer noted in all areas of the myocardium. The resting images similar demonstrated normal uptake of tracer noted in all areas of the myocardium. No areas of reversibility are noted to suggest ischemia and no previous infarct is noted. Conclusion: Normal pharmacologic myocardial perfusion stress test.
== END | disposition home or self-care (01) ==
LOC: CVS 06:04
PROVIDERS: PCP Internal Medicine; Referring Provider Internal Medicine; Visit Provider Internal Medicine
DX: R06.09 Other forms of dyspnea (principal)
CPT/HCPCS: 78452; 93017; 93306; A9500; Q9957; A4216; C8929; J2785

== ENCOUNTER → 2025-07-25 | Outpatient (CLI) | payer MEDICARE, OTHER, SELFPAY ==
[2025-07-25 12:10] LABS: PSA,Total- Diagnostic 0.58 ng/mL (0.00-4.00)
== END | disposition home or self-care (01) ==
LOC: LAB 10:56
PROVIDERS: PCP Internal Medicine; Referring Provider Urology; Visit Provider Urology
DX: R97.21 Rising PSA following treatment for malignant neoplasm of prostate (principal)
CPT/HCPCS: 36415; 84153